=== PATIENT | female | born 1960 | race Caucasian/White ===

== ENCOUNTER 2018-02-03 17:46 | Emergency (ER) | payer BC, MEDICAID ==
--- NOTE | 2018-02-03 18:33 | EDM.PDOC ---
ED HPI GENERAL MEDICAL PROBLEM - General Chief Complaint: Lower Extremity Injury/Pain Stated Complaint: FALL AND HURT RIGHT KNEE Time Seen by Provider: 02/03/18 18:15 Source of Information: Reports: Patient History Limitations: Reports: No Limitations - History of Present Illness INITIAL COMMENTS - FREE TEXT/NARRATIVE: Patient is a 57-year-old female who presents to the emergency department secondary to slip and fall and injuring right knee. Fall was witnessed by executive director of nursing Margoth, and was described as patient walking into the emergency room entrance and tripping over her feet. Floor was not wet at time of incident. Patient denies any other injury, chest pain, shortness of breath, or head injury. Patient states that she does have a history of chronic right knee pain. Onset: Today Duration: Minutes: Location: Reports: Upper Extremity, Right Quality: Reports: Ache Severity: Mild Improves with: Reports: Rest Worsens with: Reports: Movement Associated Symptoms: Reports: No Other Symptoms Review of Systems - Review of Systems Review Of Systems: ROS reveals no pertinent complaints other than HPI. Constitutional: Reports: No Symptoms Eyes: Reports: No Symptoms Ears: Reports: No Symptoms Nose: Reports: No Symptoms Mouth/Throat: Reports: No Symptoms Respiratory: Reports: No Symptoms Cardiovascular: Reports: No Symptoms GI/Abdominal: Reports: No Symptoms Genitourinary: Reports: No Symptoms Musculoskeletal: Reports: Leg Pain (Right knee), Joint Pain. Denies: Joint Swelling Skin: Reports: No Symptoms Neurological: Reports: No Symptoms Psychiatric: Reports: No Symptoms ED EXAM, GENERAL - Physical Exam Exam: See Below Exam Limited By: No Limitations General Appearance: Alert, WD/WN, No Apparent Distress Throat/Mouth: Normal Inspection, Normal Oropharynx, No Airway Compromise Head: Atraumatic, Normocephalic Neck: Normal Inspection, Supple, Non-Tender, Full Range of Motion Respiratory/Chest: No Respiratory Distress Back Exam: Normal Inspection Extremities: Leg Pain (Right knee, no ecchymosis, no edema, no erythema.) Neurological: Alert, Oriented, Normal Cognition Psychiatric: Normal Affect, Normal Mood Skin Exam: Warm, Dry, Intact, Normal Color, No Rash Course - Orders/Labs/Meds Orders: Active Orders 24 hr Category Date Time Status Knee 1V or 2V Rt [CR] Stat Exams 02/03/18 18:16 Ordered - Radiology Interpretation Free Text/Narrative:: Right knee x-ray shows small effusion but no fracture. Departure - Departure Time of Disposition: 18:56 Disposition: Home, Self-Care 01 Condition: Good Clinical Impression: Sprain of knee Knee joint effusion Qualifiers: Laterality: right Qualified Code(s): M25.461 - Effusion, right knee - Discharge Information Instructions: Knee Sprain, Adult, [id number], Knee Effusion, [id number], RICE for Routine Care of Injuries, [id number] Referrals: PCP,Not In Area [Primary Care Provider] - Forms: ED Department Discharge Additional Instructions: Follow-up at [facility] in 1-2 days. Return to emergency department sooner if symptoms continue or worsen. - My Orders Last 24 Hours: My Active Orders 02/03/18 18:16 Knee 1V or 2V Rt [CR] Stat - Assessment/Plan Last 24 Hours: My Active Orders 02/03/18 18:16 Knee 1V or 2V Rt [CR] Stat Assessment:: Right knee sprain, joint effusion Plan: Follow-up with PCP
== END 2018-02-03 19:30 | disposition home or self-care (01) ==
LOC: KA.ED 17:46
DX: S83.91XA Sprain of unspecified site of right knee, initial encounter (principal); M25.461 Effusion, right knee; W01.0XXA Fall on same level from slipping, tripping and stumbling without subsequent striking against object, initial encounter
CPT/HCPCS: 73560-RT; 99283